=== PATIENT | male | born 1955 | race Two or more races ===

== ENCOUNTER 2020-08-29 10:06 | Day surgery (SDC) | payer OTHER ==
[~2020-08-29 10:06] MED LIST: BENICAR20 MG PO; CRESTOR5 MG PO; TAMS0.4C PO
== END 2020-08-29 19:35 | disposition home or self-care (01) ==
LOC: CIR.AMB 10:06
PROVIDERS: ATTEND Colon & Rectal Surgery
DX: K60.1 Chronic anal fissure (principal); K62.4 Stenosis of anus and rectum; Z20.822 Contact with and (suspected) exposure to COVID-19